=== PATIENT | female | born 1965 | race Two or more races ===

== ENCOUNTER 2024-04-15 13:40 | Emergency (ER) | payer OTHER ==
[~2024-04-15] VITALS: Ht 167.6 cm; Wt 103.1 kg
[2024-04-15 15:13] VITALS: BP 145/72; PULSE 99; RESP 16; TEMP 97.7; O2SAT 95
== END 2024-04-15 15:28 | disposition home or self-care (01) ==
LOC: ER 13:40
DX: S61.412A Laceration without foreign body of left hand, initial encounter (principal); S51.811A Laceration without foreign body of right forearm, initial encounter; W18.09XA Striking against other object with subsequent fall, initial encounter; Y93.89 Activity, other specified; Y92.69 Other specified industrial and construction area as the place of occurrence of the external cause; Y99.8 Other external cause status
CPT/HCPCS: 12002